=== PATIENT | female | born 1935 | race Caucasian/White ===

== ENCOUNTER 2019-06-29 09:48 | Outpatient (CLI) | payer MEDICARE, BC ==
[~2019-06-29 09:48] MED LIST: Gadobenate Dimeglumine 529 MG/1 ML (20ML VIAL) ONE
--- NOTE | 2019-06-29 12:11 | MRI ---
EXAM: MRI of the pelvis without and with contrast HISTORY: Left adnexal cyst seen on outside hospital CT COMPARISON: CT abdomen/pelvis from the [facility] TECHNIQUE: Multiplanar multisequence MR images were obtained of the pelvis without and with IV contra st. FINDINGS: Cervix: A 1.3 cm focus of high T1 and T2 signal within the cervix may represent a proteinaceous cyst. Uterus: No focal masses. Junctional zone: Normal in thickness. No free fluid is seen in the pelvis. Right ovary: Normal in appearance without visualized mass Left ovary: There is a 3.6 cm well-circumscribed focus of high T2 signal which likely represents a si mple cyst. No suspicious nodular enhancement of the wall is seen. Pelvic lymph nodes: No pelvic adenopathy Osseous structures: No marrow signal abnormality Visualized intrapelvic structures: Scattered diverticula in the colon IMPRESSION: 1. Simple left ovarian cyst 2. Diverticulosis 3. Abnormality in the cervix may represent a proteinaceous nabothian cyst. Recommend correlation with gynecologic exam.
--- NOTE | 2019-06-29 12:16 | MRI ---
EXAM: MRI of the abdomen without and with contrast COMPARISON: CT abdomen/pelvis from [facility] 06/23/2018 HISTORY: Cyst seen in the pancreas on outside CT TECHNIQUE: Multiplanar multi sequence MR images were taken of the abdomen without and with IV contras t. An MRCP was performed. FINDINGS: Liver: Scattered nonenhancing well-circumscribed foci of high T2 signal measuring up to 1.6 cm in siz e represent simple cysts. Gallbladder: No filling defects or gallbladder wall thickening. Common bile duct: Prominent in caliber without filling defects. This may be normal for the patient's age. Adrenal glands: Unremarkable. Kidneys: Scattered nonenhancing well-circumscribed foci of high T2 signal measuring up to 9 mm in siz e represent simple cysts. Spleen: Unremarkable. Pancreas: A 1.9 cm well-circumscribed focus of high T2 signal without enhancement likely represents a pancreatic cyst or pseudocyst. This does not appear to communicate with the pancreatic duct. There are other tiny less than 2 mm foci of high T2 signal in the tail the pancreas which may represent add itional smaller cysts.. Retroperitoneum: No enlarged lymph nodes Bones: No marrow signal abnormality. IMPRESSION: 1. Pancreatic cyst with likely smaller additional cysts in the tail the pancreas 2. Renal cysts 3. Hepatic cysts
== END 2019-06-29 09:49 | disposition home or self-care (01) ==
LOC: BICMRI 09:48
PROVIDERS: ATTEND Internal Medicine
DX: R93.5 Abnormal findings on diagnostic imaging of other abdominal regions, including retroperitoneum (principal); R93.89 Abnormal findings on diagnostic imaging of other specified body structures; K86.2 Cyst of pancreas; N28.1 Cyst of kidney, acquired; K76.89 Other specified diseases of liver; N83.202 Unspecified ovarian cyst, left side; I70.90 Unspecified atherosclerosis
CPT/HCPCS: 72197; 74183; 82565; A9577